=== PATIENT | male | born 1960 | race Caucasian/White ===

== ENCOUNTER → 2018-02-05 10:34 | Outpatient (CLI) | payer OTHER, SELFPAY ==
--- NOTE | 2018-02-05 | DI.RAD.S_ITS ---
PROCEDURE: XR THORACIC SPINE 3V INDICATIONS: THORACIC BACK PAIN TECHNIQUE: 3 views of the thoracic spine were acquired. COMPARISON: [facility], , BONE SURVEY ADULT METS, 03/11/2017, 9:23. FINDINGS: Bones: Unchanged appearance of mid thoracic mild compression fracture with approximately 10% height loss, unchanged since 03/11/17. No suspicious bony lesions. No definite thoracic disc space narrowing. Multilevel cervical disc degeneration incidentally noted Soft tissues: No paravertebral stripe thickening. IMPRESSION: Unchanged chronic mid thoracic compression fracture since 03/11/17 Dictated by: Nikunj Hallman M.D. on 02/05/2018 at 12:57 Approved by: Nikunj Hallman M.D. on 02/05/2018 at 13:00
== END ==
PROVIDERS: Family Provider Family Medicine; PCP Family Medicine; Visit Provider Family Medicine
DX: M48.54XA Collapsed vertebra, not elsewhere classified, thoracic region, initial encounter for fracture (principal)
CPT/HCPCS: 72072

== ENCOUNTER → 2018-06-01 08:35 | Outpatient (CLI) | payer OTHER, SELFPAY ==
[2018-06-01 08:56] LABS: Add Manual Diff / Slide Review NO; Basophils Percent Auto 1.7 % (0-2); Eosinophils Percent Auto 1.3 % (2-4); Hematocrit 32.4 % (41-53); Hemoglobin 10.4 g/dL (13.5-17.5); Lymphocytes Percent Auto 30.3 % (25-40); Mean Corpuscular HGB Conc 32.2 % (30-36); Mean Corpuscular Hemoglobin 23.3 PG (26-34); Mean Corpuscular Volume 72.5 fL (80-100); Monocytes Percent Auto 11.7 % (3-14); Neutrophils Absolute Auto 2800 /uL (3000-5900); Platelet Count 195 X10^3/uL (150-400); Red Blood Cell Count 4.47 X10^6/uL (4.5-5.9); Red Cell Distribution Width 17.8 % (11.6-14.8); White Blood Cell Count 5.1 X10^3/uL (4.5-11.0)
[2018-06-01 09:05] LABS: Alanine Aminotransferase 21 IU/L (21-72); Albumin 3.9 g/dL (3.5-5.0); Albumin Globulin Ratio 0.9 (1.0-2.8); Alkaline Phosphatase 62 U/L (38-126); Aspartate Aminotransferase 18 IU/L (17-59); Bilirubin Total 0.5 mg/dL (0.2-1.3); Blood Urea Nitrogen 32 mg/dL (9-20); Calcium 8.4 mg/dL (8.4-10.2); Carbon Dioxide 24 mmol/L (22-32); Chloride 109 mmol/L (98-107); Estimated Glomerular Filt Rate 34.9 mL/min (>60); Globulin 4.2 g/dL (1.7-4.1); Glucose 93 mg/dL (70-100); HEMOLYSIS < 15 (0-50); Potassium 4.2 mmol/L (3.4-5.1); Sodium 143 mmol/L (137-145); Total Protein 8.1 g/dL (6.3-8.2)
[2018-06-02 14:47] LABS: Immunoglobulin A 60 mg/dL (81-463); Immunoglobulin G, Quantitative 3492 mg/dL (694-1618)
[2018-06-02 15:04] LABS: Free Kappa Light Chain 643.1 mg/L (3.3-19.4); Free Kappa/ Lambda Ratio 62.92 (0.26-1.65); Free Lambda 10.2 mg/L (5.7-26.3)
[2018-06-02 15:11] LABS: Beta-2-Microglobulin 5.91 mg/L (< 2.52)
[2018-06-04 15:45] LABS: Abnormal Protein Band 1 2.9 g/dL (NONE DETECTED); Albumin 3.6 g/dL (3.8-4.8); Alpha 1 Globulin 0.3 g/dL (0.2-0.3); Alpha 2 Globulin 0.6 g/dL (0.5-0.9); Beta 1 Globulin 0.4 g/dL (0.4-0.6); Protein, Total 8.1 g/dL (6.1-8.1)
== END ==
PROVIDERS: Family Provider Family Medicine; PCP Family Medicine; Visit Provider Nurse Practitioner Gerontology
DX: C90.00 Multiple myeloma not having achieved remission (principal)
CPT/HCPCS: 36415; 80053; 82232; 82784; 83883; 84155; 84165; 85025

== ENCOUNTER 2019-01-03 11:04 | Emergency (ER) | payer OTHER, SELFPAY ==
[2019-01-03 11:25] VITALS: BP 134/85; PULSE 81; RESP 16; TEMP 36.7; O2SAT 98; BMI 22.4
--- NOTE | 2019-01-03 12:34 | ED_ITS ---
HPI - Extremity Injury (Upper) <ADORE Fabian-BC - Last Filed: 01/03/19 13:34> General Chief Complaint: Extremity Injury, Upper Stated Complaint: Rt shoulder pain Time Seen by Provider: 01/03/19 12:15 Source: patient and family Mode of arrival: ambulatory Limitations: no limitations History of Present Illness HPI narrative: The patient is a 58-year-old nonsmoker Male who presents with his . He has a history of multiple myeloma. He presents with a chief complaint of right shoulder pain since an injury while planting skiing on 12/28/2018. He was skiing in [place] and was evaluated in an emergency department there. He had several x-rays done, which she states showed no fracture. He presents today requesting imaging to ensure that there is no soft tissue injury. he states that he is feeling overall more comfortable, has a significantly increased range of motion since the accident. He is not sure where he was evaluated in an emergency department for what emergency department he was evaluated in. He states that the [facility] had an anesthesiologist to give him pain medicine but he is not sure what that was. Related Data Home Medications Medication Instructions Recorded Confirmed multivitamin [Multiple Vitamins] 1 tab PO QDAY #0 tab 06/05/16 losartan 25 mg PO QDAY #0 06/20/17 Mikey Mag Zinc Plus D3 06/22/18 ibhifxt-ylofujcos-xcyo 06/22/18 dexamethasone See Rx Instructions .ROUTE .COMPLEX 08/26/18 08/26/18 Previous Rx's Medication Instructions Recorded acyclovir 400 mg PO BID #120 tab 06/22/18 Allergies Allergy/AdvReac Type Severity Reaction Status Date / Time No Known Drug Allergies Allergy Verified 01/03/19 11:25 Review of Systems <ARTHUR Fabian - Last Filed: 01/03/19 13:34> Review of Systems GENERAL: Denies chills, fatigue, malaise, fever, sweats. HEENT: Denies sinus pain, ear pain, sore throat, difficulty swallowing, dizziness. RESPIRATORY: Denies dyspnea, cough, wheezing, hemoptysis, sputum. CARDIOVASCULAR: Denies chest pain, palpitations, orthopnea, edema, GASTROINTESTINAL: Denies nausea, vomiting, abdominal pain, diarrhea, constipation, melena. : Denies dysuria, frequency, incontinence, hematuria, urinary retention. MUSCULOSKELETAL: See HPI SKIN: See HPI NEUROLOGIC: Denies weakness, headache, numbness, change in speech, confusion, seizures, incoordination. PSYCHIATRIC: No concerning psychosocial issues. 12 point review of systems is negative except for those stated above PFSH <LEV Fabian - Last Filed: 01/03/19 13:34> Social History Smoking Status: Never smoker Social History Smoking Status: Never smoker Exam <LEV Fabian - Last Filed: 01/03/19 13:34> Narrative Exam Narrative: GENERAL: This is a well-nourished, well-developed patient, standing in exam room in no acute distress HEAD: Atraumatic. Normocephalic. No temporal or scalp tenderness. EYES: Pupils equal round and reactive. Extraocular motions intact. No scleral icterus. No injection or drainage. ENT: Nose without bleeding, purulent drainage or septal hematoma. Throat without erythema, tonsillar hypertrophy or exudate. Uvula midline. Airway patent. NECK: Trachea midline. No JVD or lymphadenopathy. Supple, nontender, no meningeal signs. CARDIOVASCULAR: Regular rate and rhythm RESPIRATORY: No increased respiratory effort. No cough. EXTREMITIES: Pain to palpation right AC joint. Generalized pain to palpation right shoulder. Patient is able to flex extend and pronate supinate has full range of motion right shoulder. Negative empty can test. Positive radial pulse right hand. BACK: Nontender without deformity or crepitance. No flank tenderness. NEURO: AOx3. SKIN: No rash erythema or ecchymosis noted right shoulder. Initial Vital Signs Initial Vital Signs: Vital Signs Temperature 98.0 F 01/03/19 11:25 Pulse Rate 81 01/03/19 11:25 Respiratory Rate 16 01/03/19 11:25 Blood Pressure 134/85 01/03/19 11:25 Pulse Oximetry 98 01/03/19 11:25 <Myah Ivy MD - Last Filed: 01/03/19 18:33> Initial Vital Signs Initial Vital Signs: Vital Signs Temperature 98.0 F 01/03/19 11:25 Pulse Rate 81 01/03/19 11:25 Respiratory Rate 16 01/03/19 11:25 Blood Pressure 134/85 01/03/19 11:25 Pulse Oximetry 98 01/03/19 11:25 Course <LEV Fabian - Last Filed: 01/03/19 13:34> Vital Signs - 8 hr 01/03/19 11:25 01/03/19 13:18 Temperature 98.0 F Pulse Rate 81 62 Respiratory Rate 16 18 Blood Pressure 134/85 Pulse Oximetry 98 99 <Myah Ivy MD - Last Filed: 01/03/19 18:33> Vital Signs - 8 hr 01/03/19 11:25 01/03/19 13:18 Temperature 98.0 F Pulse Rate 81 62 Respiratory Rate 16 18 Blood Pressure 134/85 Pulse Oximetry 98 99 MDM - Extremity Injury (Upper) <LEV Fabian - Last Filed: 01/03/19 13:34> MDM Narrative Medical decision making narrative: The patient is a 58-year-old male who presents with a chief complaint of right shoulder pain. He states he had negative x-rays at an outside facility in [place]. He is declining further x- rays today. I discussed that we could get x-rays from his facility, that his could obtain the disc with the x-rays on the disc that is at home. I discussed with the patient that given that he is improving and neurovascularly intact that I cannot order further imaging on his shoulder to ensure that he ?has no soft tissue injury in the emergency department today as he is requesting. Overall his exam is benign. I discussed that I would be happy to obtain his x-rays and take a look at those as well as given contact information for primary care as well as [facility]. He is neurovascularly intact and appears to be improving from his previous state on exam. He states he does not want to spend the whole day in the emergency department to see if we can take a look at his x-rays and that he would rather follow up for that. He was placed in a sling for comfort, I did discuss that he needs to do range of motion as able to prevent frozen shoulder and he states understanding. Encouraged continued rest ice compression elevation as well as cuia-ndj-pbhjegz pain medication as needed and able. Patient and state understanding and stated they will follow up appropriately. Discussed return precautions to the emergency department including acute concerns. Discharge Plan Departure Patient Disposition: Home Clinical Impression: Acute shoulder pain Qualifiers: Laterality: right Qualified Code(s): M25.511 - Pain in right shoulder Discharge Date/Time: 01/03/19 13:18 Interventions: ED Discharge Assessment Last Done: 01/03/19 13:18 Instructions: How to Use a Sling, How To Perform RICE (Rest, Ice, Compress, Elevate), DI for Shoulder Pain, DI for AC Joint Separation Activity Restrictions/Additional Instructions: I am sorry that we could not do further imaging today. Please follow up with primary care provider as well as Orthopedics. I have given you their contact information. Please continue to use conservative measures for your pain. Please do rxini-ex-wikhqo exercises as well so that you do not develop frozen shoulder. Please come back to the emergency department for any acute concerns such as shortness of breath chest pain concern of heart attack or stroke. Prescriptions: No Action multivitamin [Multiple Vitamins] 1 EACH tablet 1 tab PO QDAY Qty: 0 RF: 0 losartan 25 MG tablet 25 mg PO QDAY Qty: 0 RF: 0 xzaxpmr-zzxhrypmc-nvyr RF: 0 Mikey Mag Zinc Plus D3 RF: 0 acyclovir 400 mg Tablet 400 mg PO BID Qty: 120 RF: 1 dexamethasone 4 mg Tablet See Rx Instructions .ROUTE .COMPLEX RF: 0 Referrals: [facility] [Provider Group] Fam Burger MD [Primary Care Provider] -
[2019-01-03 13:18] VITALS: PULSE 62; RESP 18; O2SAT 99
== END 2019-01-03 13:18 | disposition home or self-care (01) ==
PROVIDERS: Emergency Provider Nurse Practitioner Family; PCP Family Medicine
DX: M25.511 Pain in right shoulder (principal); V00.328D Other snow-ski accident, subsequent encounter
CPT/HCPCS: 99282

== ENCOUNTER → 2019-01-07 15:12 | Outpatient (CLI) | payer OTHER, SELFPAY ==
--- NOTE | 2019-01-07 | DI.MRI.S_ITS ---
PROCEDURE: MR STROKE Pre- and post-contrast brain MRI, non-contrast brain MR angiogram, pre- and postcontrast neck MR angiogram INDICATIONS: FACIAL NEURALGIA TECHNIQUE: Brain: Noncontrast axial T1 spin echo, axial T2 fast spin echo, sagittal and axial FLAIR, coronal T2 fast spin echo, axial gradient echo, axial diffusion and ADC through the brain. After the administration of contrast, axial 3D VIBE of the cranial vasculature and brain. Brain MRA: Non-contrast 3-D time of flight MR angiogram, with multiple udunhqb-kvfoemdsp-npeuebwcdc (MIP) reformats performed. Neck MRA: Axial and sagittal TruFISP through the neck. Coronal dynamic MR angiogram during administration of contrast in the arterial and venous phases, with 3-dimenstional yfmansm-xlpghpfgy-idauflnphm (MIP) reformats constructed from subtraction images. COMPARISON: None. FINDINGS: Image quality: Excellent. BRAIN: CSF spaces: Ventricles are normal in size and shape. Basal cisterns are patent. No extra-axial fluid collections. Brain: No intracranial bleeds or mass effects. Andrews-white matter interface is normal. Diffusion weighted images show no acute ischemic insults. Brainstem appears normal. Normal intravascular flow voids are present. No abnormal intracranial enhancement. Skull and face: Calvarial marrow signal is normal. Orbits appear normal. Sinuses: Sinuses and mastoids are clear. BRAIN MR ANGIOGRAM: Anterior circulation: Intracranial internal carotid arteries are normal in size and enhancement. The flow within the paired anterior cerebral arteries is normal and symmetric. The flow within the middle cerebral arteries is normal and symmetric. The anterior communicating artery is seen. No stenoses, occlusions, or aneurysms. Posterior circulation: The visualized portions of the vertebral arteries demonstrate normal caliber, and join to form a normal appearing basilar artery. The flow within the posterior cerebral arteries is normal and symmetric. No stenoses, occlusions, or aneurysms. NECK MR ANGIOGRAM: Carotids: Great vessels demonstrate a conventional anatomy as they arise from the aortic arch. The origins of the common carotid arteries appear patent. The calibers and courses of both common carotid arteries are normal. The bifurcation regions appear normal bilaterally. The internal carotid arteries demonstrate normal course and caliber. Posterior circulation: The origins of the vertebral arteries appear patent. More superior portions of both vertebral arteries demonstrate normal course and caliber, and join to form a normal appearing basilar artery. Miscellaneous: Subclavian arteries appear patent. Pre-contrast images through the neck show no soft tissue abnormalities. IMPRESSION: BRAIN MRI: Normal examination. No mass or inflammation involving the skull base cranial nerves are seen. No skull base inflammation or neoplastic process is found. BRAIN MR ANGIOGRAM: No aneurysm, no vascular malformation identified. NECK MR ANGIOGRAM: Normal cervical MR angiography, without evidence of aneurysm or dissection, or appreciable stenosis. Dictated by: Yoandy Dugan M.D. on 01/07/2019 at 16:46 Approved by: Yoandy Dugan M.D. on 01/07/2019 at 16:49
== END ==
PROVIDERS: PCP Family Medicine; Visit Provider Family Medicine
DX: G58.8 Other specified mononeuropathies (principal)
CPT/HCPCS: 70548; 70553; A9579